=== PATIENT | female | born 1955 | race Caucasian/White ===

== ENCOUNTER → 2016-06-03 | Outpatient (CLI) | payer BC, OTHER ==
--- NOTE | 2016-06-03 15:22 | REPMRS ---
Patient History The patient states she had a clinical breast exam in 05/2016. Patient is postmenopausal. Family history of colorectal cancer in maternal aunt at age 50 or over. Taking estrogen for 13 years 10 months beginning at age 46. Digital Woman Screen Mammo: June 03, 2016 - Exam #: [id number] Bilateral CC and MLO view(s) were taken. Technologist: Angelica Haddad, Technologist Prior study comparison: May 25, 2015, digital woman screen mammo performed at [facility]. May 19, 2014, digital woman screen mammo performed at [facility]. May 18, 2013, digital woman screen mammo performed at [facility]. FINDINGS: There are scattered fibroglandular densities. There has been no change in the appearance of the mammogram from the prior studies. There is a mild amount of scattered fibroglandular density which is fairly symmetric. There is no interval development of dominant mass, architectural distortion, or clustered microcalcification suggestive of malignancy. ASSESSMENT: BI-RADS/ACR category 1 mammogram. Negative. Recommendation Routine screening mammogram in 1 year (for women over age 40). This mammogram was interpreted with the aid of an FDA-approved computer-aided dectection system. Electronically Signed By: Eliseo Xavier MD 06/03/16 [id number]
== END ==
LOC: M WHC 13:10
PROVIDERS: ATTEND Nurse Practitioner Family
DX: Z12.31 Encounter for screening mammogram for malignant neoplasm of breast (principal); Z78.0 Asymptomatic menopausal state; Z80.0 Family history of malignant neoplasm of digestive organs; Z92.23 Personal history of estrogen therapy

== ENCOUNTER → 2017-06-09 | Outpatient (CLI) | payer BC | LOC: M WHC 10:25 | DX: Z12.31 Encounter for screening mammogram for malignant neoplasm of breast (principal) | CPT/HCPCS: 77067 ==

== ENCOUNTER → 2017-08-25 | Outpatient (CLI) | payer BC, OTHER ==
[2017-08-25 09:49] LABS: ALBUMIN 3.7 GM/DL (3.2-5.2); ALBUMIN/GLOBULIN RATIO 1.12 (1.00-1.93); ALKALINE PHOSPHATASE 69 U/L (45-117); ALT/SGPT 21 U/L (12-78); ANION GAP 4 MEQ/L (8-16); AST/SGOT 15 U/L (7-37); BILIRUBIN,TOTAL 0.7 MG/DL (0.2-1.0); BLOOD UREA NITROGEN 14 MG/DL (7-18); CALCIUM LEVEL 8.5 MG/DL (8.8-10.2); CARBON DIOXIDE LEVEL 30 MEQ/L (21-32); CHLORIDE LEVEL 108 MEQ/L (98-107); CHOLESTEROL LEVEL 199 MG/DL (<200); CHOLESTEROL RISK RATIO 4.522 (<5); GLOMERULAR FILTRATION RATE > 60.0 (>45); GLUCOSE, FASTING 115 MG/DL (70-100); HDL CHOLESTEROL 44 MG/DL (>40); LDL CHOLESTEROL 112.4 MG/DL (<100); NON-HDL-C 155 MG/DL; POTASSIUM SERUM 4.6 MEQ/L (3.5-5.1); SODIUM LEVEL 142 MEQ/L (136-145); TRIGLYCERIDES LEVEL 213 MG/DL (<150)
[2017-08-25 11:44] LABS: ESTIMATED AVERAGE GLUCOSE 157 MG/DL (60-110); HEMOGLOBIN A1c 7.1 %
== END ==
LOC: M LAB 09:07
DX: E78.5 Hyperlipidemia, unspecified (principal); E03.9 Hypothyroidism, unspecified; E11.9 Type 2 diabetes mellitus without complications
CPT/HCPCS: 80053

== ENCOUNTER → 2017-12-01 | Outpatient (CLI) | payer BC, OTHER ==
[2017-12-01 14:54] LABS: ALBUMIN 3.9 GM/DL (3.2-5.2); ALKALINE PHOSPHATASE 65 U/L (45-117); ALT/SGPT 23 U/L (12-78); ANION GAP 8 MEQ/L (8-16); AST/SGOT 13 U/L (7-37); BILIRUBIN,TOTAL 0.7 MG/DL (0.2-1.0); BLOOD UREA NITROGEN 16 MG/DL (7-18); CALCIUM LEVEL 8.8 MG/DL (8.8-10.2); CARBON DIOXIDE LEVEL 27 MEQ/L (21-32); CHLORIDE LEVEL 106 MEQ/L (98-107); CREATININE FOR GFR 0.64 MG/DL (0.55-1.30); GLOMERULAR FILTRATION RATE > 60.0 (>45); LDL CHOLESTEROL 75 MG/DL (<100); POTASSIUM SERUM 4.8 MEQ/L (3.5-5.1); SODIUM LEVEL 141 MEQ/L (136-145); TRIGLYCERIDES LEVEL 309 MG/DL (<150)
[2017-12-02 01:21] LABS: ESTIMATED AVERAGE GLUCOSE 123 MG/DL (60-110); HEMOGLOBIN A1c 5.9 %
[2017-12-02 04:20] LABS: ALBUMIN/GLOBULIN RATIO 1.26 (1.00-1.93); CHOLESTEROL LEVEL 181 MG/DL (<200); CHOLESTEROL RISK RATIO 4.113 (<5); HDL CHOLESTEROL 44 MG/DL (>40); NON-HDL-C 137 MG/DL
[2017-12-02 04:29] LABS: GLUCOSE, FASTING 114 MG/DL (70-100)
== END ==
LOC: M LAB 09:12
DX: E78.5 Hyperlipidemia, unspecified (principal); E03.9 Hypothyroidism, unspecified; E11.9 Type 2 diabetes mellitus without complications
CPT/HCPCS: 84443

== ENCOUNTER → 2018-03-03 | Outpatient (CLI) | payer BC, OTHER ==
[2018-03-03 10:50] LABS: ALBUMIN 3.8 GM/DL (3.2-5.2); ALBUMIN/GLOBULIN RATIO 1.27 (1.00-1.93); ALKALINE PHOSPHATASE 76 U/L (45-117); ALT/SGPT 21 U/L (12-78); ANION GAP 6 MEQ/L (8-16); AST/SGOT 14 U/L (7-37); BILIRUBIN,TOTAL 0.8 MG/DL (0.2-1.0); BLOOD UREA NITROGEN 18 MG/DL (7-18); CALCIUM LEVEL 8.7 MG/DL (8.8-10.2); CARBON DIOXIDE LEVEL 31 MEQ/L (21-32); CHLORIDE LEVEL 103 MEQ/L (98-107); CHOLESTEROL LEVEL 205 MG/DL (<200); CHOLESTEROL RISK RATIO 4.659 (<5); CREATININE FOR GFR 0.64 MG/DL (0.55-1.30); GLOMERULAR FILTRATION RATE > 60.0 (>45); GLUCOSE, FASTING 141 MG/DL (70-100); HDL CHOLESTEROL 44 MG/DL (>40); LDL CHOLESTEROL 111 MG/DL (<100); NON-HDL-C 161 MG/DL; POTASSIUM SERUM 4.4 MEQ/L (3.5-5.1); SODIUM LEVEL 140 MEQ/L (136-145); TOTAL PROTEIN 6.8 GM/DL (6.4-8.2); TRIGLYCERIDES LEVEL 249 MG/DL (<150)
[2018-03-03 12:38] LABS: ESTIMATED AVERAGE GLUCOSE 160 MG/DL (60-110); HEMOGLOBIN A1c 7.2 %
== END ==
LOC: M LAB 09:35
DX: E11.9 Type 2 diabetes mellitus without complications (principal); E03.9 Hypothyroidism, unspecified; E78.5 Hyperlipidemia, unspecified
CPT/HCPCS: 84443

== ENCOUNTER → 2018-07-24 | Outpatient (CLI) | payer BC, OTHER ==
[~2018-07-24] MED LIST: ASPI81CH49 PO; BLAC540C2 PO; CALTTAB5 PO; CINN500C9 PO; CLAR10CA3 PO; COCOOIL6 PO; COLA100C5 PO; ESTR0.1C5 VA; EXCETAB80 PO; FIBETAB PO; GLUC1CAP10 PO; JANU100T PO; LEVO88TA3 PO; METF10004; OCUVTAB PO; OMEG100011 PO; PAPATAB3 PO; PROBCAP4 PO; RANI150T PO; REST0.05 OU; VITA400C7 PO; VITA500T PO; [UNRECOGNIZED DRUG - OTHER] PO; primrose oil PO; vitamin B2 PO
[2018-07-24 11:09] LABS: BLOOD UREA NITROGEN 23 MG/DL (7-18); CREATININE FOR GFR 0.63 MG/DL (0.55-1.30); GLOMERULAR FILTRATION RATE > 60.0 (>45)
== END ==
LOC: M LAB 09:20
PROVIDERS: ATTEND Psychiatry & Neurology Neurology
DX: I10 Essential (primary) hypertension (principal)

== ENCOUNTER → 2018-07-29 | Outpatient (REF) | payer OTHER ==
[2018-07-29 13:48] LABS: ALBUMIN 3.7 GM/DL (3.2-5.2); ALT/SGPT 24 U/L (12-78); BILIRUBIN,TOTAL 0.6 MG/DL (0.2-1.0); BLOOD UREA NITROGEN 17 MG/DL (7-18); CALCIUM LEVEL 8.7 MG/DL (8.8-10.2); CARBON DIOXIDE LEVEL 29 MEQ/L (21-32); CHLORIDE LEVEL 108 MEQ/L (98-107); CHOLESTEROL LEVEL 175 MG/DL (<200); CHOLESTEROL RISK RATIO 3.645 (<5); CREATININE FOR GFR 0.64 MG/DL (0.55-1.30); FREE T4 1.19 NG/DL (0.76-1.46); GLOMERULAR FILTRATION RATE > 60.0 (>45); GLUCOSE, FASTING 118 MG/DL (70-100); HDL CHOLESTEROL 48 MG/DL (>40); LDL CHOLESTEROL 91 MG/DL (<100); NON-HDL-C 127 MG/DL; POTASSIUM SERUM 4.6 MEQ/L (3.5-5.1); SODIUM LEVEL 141 MEQ/L (136-145); TOTAL PROTEIN 6.5 GM/DL (6.4-8.2); TRIGLYCERIDES LEVEL 180 MG/DL (<150)
== END ==
LOC: M SFHCADAM 08:25
PROVIDERS: ATTEND Physician Assistant Medical
DX: E03.9 Hypothyroidism, unspecified (principal); E11.39 Type 2 diabetes mellitus with other diabetic ophthalmic complication

== ENCOUNTER → 2018-08-04 | Outpatient (CLI) | payer BC ==
--- NOTE | 2018-08-04 10:49 | REPMRS ---
Patient History The patient states she had a clinical breast exam in 07/2018. Patient is postmenopausal. Family history of colorectal cancer at age 50 or over in maternal aunt, pancreatic cancer in brother. Took estrogen for 14 years 10 months beginning at age 46. Digital Woman Screen Mammo: August 04, 2018 - Exam #: [id number] Bilateral CC and MLO view(s) were taken. Technologist: Elise Dupree, Technologist Prior study comparison: June 09, 2017, digital woman screen mammo performed at [facility]. June 03, 2016, digital woman screen mammo performed at [facility]. May 25, 2015, digital woman screen mammo performed at [facility]. FINDINGS: There are scattered fibroglandular densities. There has been no change in the appearance of the mammogram from the prior studies. There is a mild amount of scattered fibroglandular density which is fairly symmetric. There is no interval development of dominant mass, architectural distortion, or clustered microcalcification suggestive of malignancy. 3-D tomosynthesis shows no additional findings. Assessment: BI-RADS/ACR category 1 mammogram. Negative Mammogram. Recommendation Routine screening mammogram of both breasts in 1 year (for women over age 40). This patient's Lifetime Breast Cancer RIsk is estimated at 5.4 %. This mammogram was interpreted with the aid of an FDA-approved computer-aided dectection system. Electronically Signed By: Eliseo Xavier MD 08/04/18 [id number]
== END ==
LOC: M WHC 08:50
PROVIDERS: ATTEND Nurse Practitioner Family
DX: Z12.31 Encounter for screening mammogram for malignant neoplasm of breast (principal); Z78.0 Asymptomatic menopausal state; Z80.0 Family history of malignant neoplasm of digestive organs; Z92.23 Personal history of estrogen therapy

== ENCOUNTER → 2018-11-27 | Outpatient (REF) | payer OTHER ==
[2018-11-27 13:08] LABS: FREE T4 1.28 NG/DL (0.76-1.46); THYROID STIMULATING HORMONE 1.84 uIU/ML (0.358-3.740)
== END ==
LOC: M SFHCADAM 09:37
PROVIDERS: ATTEND Physician Assistant Medical
DX: E03.9 Hypothyroidism, unspecified (principal)

== ENCOUNTER → 2019-03-19 | Outpatient (CLI) | payer BC, OTHER ==
--- NOTE | 2019-03-19 15:14 | REP ---
MRI LEFT KNEE: TECHNIQUE: Axial proton density fat saturation, sagittal proton density T2 STIR, water excitation, coronal proton density, proton density fat saturation. There is a complex tear of the posterior horn of the medial meniscus extending into the anterior horn of the medial meniscus. There is fraying centrally at the apex of the body of the lateral meniscus. The cruciate and collateral ligaments are intact. Extensor mechanism is intact. Medial and lateral patellar retinacula are intact. Moderate chondromalacia is seen of the medial patellar facet. There is moderately severe diffuse chondromalacia of the medial femoral condyle and tibial plateau with mild subchondral marrow edema. Elsewhere, there is relatively mild diffuse chondromalacia. There is moderate joint effusion. Elongated cystic structure is seen in the medial popliteal fossa insinuating between the medial head of the gastrocnemius tendon and muscle and adjacent semimembranosus and semitendinosus. Fluid extends for a craniocaudal length of about 9.5 cm and has a maximum thickness of about 2.5 cm. Fluid extends around the distal semitendinosus tendon and surrounds it having an appearance of tenosynovitis, with possible associated tenosynovitis also involving the adjacent semimembranosus and medial head of the gastrocnemius. There are two small calcific or cartilaginous bodies 5 mm in diameter at the level of the joint along the medial margin of the semimembranosus tendon. IMPRESSION: Complex tear posterior horn medial meniscus. This extends into the anterior horn. There is fraying at the apex of the body of the lateral meniscus. The cruciate and collateral ligaments are intact. 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 Moderately severe diffuse chondromalacia of the medial femoral condyle and tibial plateau with mild subchondral marrow edema. Moderate joint effusion. Elongated cystic structure insinuating between the semitendinosus, semimembranosus, and medial head of gastrocnemius as discussed in detail above, with probably an element of tenosynovitis primarily involving the semitendinosus tendon. Two subcentimeter calcific or cartilaginous bodies are seen along the medial margin of the semimembranosus tendon at the level of the knee joint. Electronically Signed by Hugo Swan MD 03/19/2019 05:17 P
== END ==
LOC: M RAD 11:01
PROVIDERS: ATTEND Orthopaedic Surgery Sports Medicine
DX: M17.12 Unilateral primary osteoarthritis, left knee (principal)

== ENCOUNTER → 2019-07-27 | Outpatient (REF) | payer OTHER ==
[~2019-07-27] MED LIST changes: +VITA-243 PO; -VITA500T PO
[2019-07-27 13:25] LABS: ALBUMIN 3.6 GM/DL (3.2-5.2); ALT/SGPT 21 U/L (12-78); BILIRUBIN,TOTAL 0.8 MG/DL (0.2-1.0); BLOOD UREA NITROGEN 22 MG/DL (7-18); CALCIUM LEVEL 8.8 MG/DL (8.8-10.2); CARBON DIOXIDE LEVEL 29 MEQ/L (21-32); CHLORIDE LEVEL 106 MEQ/L (98-107); CHOLESTEROL LEVEL 176 MG/DL (<200); CHOLESTEROL RISK RATIO 4.093 (<5); CREATININE FOR GFR 0.56 MG/DL (0.55-1.30); GLOMERULAR FILTRATION RATE > 60.0 (>45); GLUCOSE, FASTING 111 MG/DL (70-100); HDL CHOLESTEROL 43 MG/DL (>40); LDL CHOLESTEROL 103 MG/DL (<100); NON-HDL-C 133 MG/DL; POTASSIUM SERUM 4.5 MEQ/L (3.5-5.1); SODIUM LEVEL 140 MEQ/L (136-145); TOTAL PROTEIN 6.6 GM/DL (6.4-8.2); TRIGLYCERIDES LEVEL 152 MG/DL (<150)
[2019-07-27 13:26] LABS: MALB URINE SIEMENS 25.6 MG/L; MAU/CREAT RATIO 23.7 MCG/MG (0.0-30.0)
[2019-07-27 13:33] LABS: HEMOGLOBIN A1c 6.5 %
== END ==
LOC: M SFHCADAM 08:17
PROVIDERS: ATTEND Physician Assistant Medical
DX: E11.39 Type 2 diabetes mellitus with other diabetic ophthalmic complication (principal); G47.33 Obstructive sleep apnea (adult) (pediatric)

== ENCOUNTER → 2019-08-09 | Outpatient (CLI) | payer BC ==
--- NOTE | 2019-08-09 12:13 | REPMRS ---
Patient History The patient states she had a clinical breast exam in July 2019. Family history of colorectal cancer at age 50 or over in maternal aunt, pancreatic cancer in brother. Took estrogen for 14 years 10 months beginning at age 46. Digital Woman Screen Mammo: August 09, 2019 - Exam #: [id number] Bilateral CC and MLO view(s) were taken. Technologist: Evette Barry, Technologist Prior study comparison: August 04, 2018, bilateral digital woman screen mammo performed at [facility]. June 09, 2017, digital woman screen mammo performed at [facility]. June 03, 2016, digital woman screen mammo performed at [facility]. FINDINGS: There are scattered fibroglandular densities. The Volpara volumetric breast density category is:B. There has been no change in the appearance of the mammogram from the prior studies. There is a mild amount of scattered fibroglandular density which is fairly symmetric. There is no interval development of dominant mass, architectural distortion, or grouped microcalcification suggestive of malignancy. 3-D tomosynthesis shows no additional findings. Assessment: BI-RADS/ACR category 1 mammogram. Negative Mammogram. Recommendation Routine screening mammogram of both breasts in 1 year (for women over age 40). This patient's Lifetime Breast Cancer Risk is estimated at 5.2 %. This mammogram was interpreted with the aid of an FDA-approved computer-aided dectection system. Electronically Signed By: Eliseo Xavier MD 08/09/19 [id number]
== END ==
LOC: M WHC 10:17
PROVIDERS: ATTEND Nurse Practitioner Family
DX: Z12.31 Encounter for screening mammogram for malignant neoplasm of breast (principal)

== ENCOUNTER → 2019-11-17 | Outpatient (REF) | payer OTHER | LOC: M LAB REF 13:14 | PROVIDERS: ATTEND Physician Assistant | DX: R30.0 Dysuria (principal) ==

== ENCOUNTER → 2019-11-25 | Outpatient (REF) | payer OTHER ==
[2019-11-25 18:58] LABS: BLOOD UREA NITROGEN 29 MG/DL (7-18); CALCIUM LEVEL 9.8 MG/DL (8.8-10.2); CARBON DIOXIDE LEVEL 29 MEQ/L (21-32); CHLORIDE LEVEL 104 MEQ/L (98-107); GLOMERULAR FILTRATION RATE > 60.0 (>45); GLUCOSE, FASTING 112 MG/DL (70-100); POTASSIUM SERUM 4.9 MEQ/L (3.5-5.1); SODIUM LEVEL 140 MEQ/L (136-145)
== END ==
LOC: M LABDRWAD 13:50
PROVIDERS: ATTEND Physician Assistant Medical
DX: N81.10 Cystocele, unspecified (principal)

== ENCOUNTER → 2020-01-10 | Outpatient (REF) | payer OTHER ==
[2020-01-10 14:31] LABS: BASO % 0.5 % (0.0-1.0); EOS # 0.1 10^3/uL (0.0-0.5); EOS % 1.2 % (0.0-3.0); HEMATOCRIT 44.8 % (36.0-47.0); HEMOGLOBIN 14.4 g/dl (12.0-15.5); LYMPH # 2.2 10^3/uL (1.5-5.0); LYMPH % 33.3 % (24.0-44.0); MEAN CORPUSCULAR HEMOGLOBIN 31.9 pg (27.0-33.0); MEAN CORPUSCULAR HGB CONC 32.1 g/dl (32.0-36.5); MEAN CORPUSCULAR VOLUME 99.3 fl (80.0-96.0); MONO # 0.6 10^3/uL (0.0-0.8); MONO % 8.4 % (0.0-5.0); NEUTROPHILS # 3.7 10^3/uL (1.5-8.5); NEUTROPHILS % 56.3 % (36.0-66.0); PLATELET COUNT, AUTOMATED 211 10^3/uL (150-450); RED BLOOD COUNT 4.51 10^6/uL (4.00-5.40); WHITE BLOOD COUNT 6.6 10^3/uL (4.0-10.0)
[2020-01-10 15:05] LABS: ALBUMIN 3.7 GM/DL (3.2-5.2); ALT/SGPT 20 U/L (12-78); BILIRUBIN,TOTAL 0.8 MG/DL (0.2-1.0); BLOOD UREA NITROGEN 20 MG/DL (7-18); CARBON DIOXIDE LEVEL 29 MEQ/L (21-32); CHLORIDE LEVEL 106 MEQ/L (98-107); CHOLESTEROL LEVEL 200 MG/DL (<200); CHOLESTEROL RISK RATIO 3.571 (<5); CREATININE FOR GFR 0.64 MG/DL (0.55-1.30); GLOMERULAR FILTRATION RATE > 60.0 (>45); GLUCOSE, FASTING 111 MG/DL (70-100); HDL CHOLESTEROL 56 MG/DL (>40); LDL CHOLESTEROL 115 MG/DL (<100); NON-HDL-C 144 MG/DL; POTASSIUM SERUM 4.5 MEQ/L (3.5-5.1); SODIUM LEVEL 140 MEQ/L (136-145); TRIGLYCERIDES LEVEL 146 MG/DL (<150)
== END ==
LOC: M SFHCADAM 10:00
PROVIDERS: ATTEND Physician Assistant Medical
DX: E11.39 Type 2 diabetes mellitus with other diabetic ophthalmic complication (principal); E03.9 Hypothyroidism, unspecified; G47.33 Obstructive sleep apnea (adult) (pediatric)

== ENCOUNTER → 2020-04-14 | Outpatient (REF) | payer OTHER | LOC: M SFHCADAM 11:45 | PROVIDERS: ATTEND Physician Assistant Medical | DX: J34.89 Other specified disorders of nose and nasal sinuses (principal) ==

== ENCOUNTER → 2020-07-21 | Outpatient (REF) | payer MEDICARE, OTHER ==
[2020-07-21 13:30] LABS: BASO # 0.1 10^3/uL (0.0-0.2); BASO % 0.9 % (0.0-1.0); EOS # 0.1 10^3/uL (0.0-0.5); EOS % 2.5 % (0.0-3.0); HEMATOCRIT 40.8 % (36.0-47.0); LYMPH # 2.5 10^3/uL (1.5-5.0); LYMPH % 43.7 % (24.0-44.0); MEAN CORPUSCULAR HGB CONC 31.9 g/dl (32.0-36.5); MEAN CORPUSCULAR VOLUME 97.4 fl (80.0-96.0); MONO # 0.5 10^3/uL (0.0-0.8); MONO % 9.1 % (2.0-8.0); NEUTROPHILS # 2.5 10^3/uL (1.5-8.5); NEUTROPHILS % 43.4 % (36.0-66.0); PLATELET COUNT, AUTOMATED 187 10^3/uL (150-450); RED BLOOD COUNT 4.19 10^6/uL (4.00-5.40); WHITE BLOOD COUNT 5.6 10^3/uL (4.0-10.0)
[2020-07-21 14:02] LABS: HEMOGLOBIN A1c 5.7 %
[2020-07-21 14:10] LABS: ALBUMIN 3.9 GM/DL (3.2-5.2); ALT/SGPT 25 U/L (12-78); BILIRUBIN,TOTAL 0.8 MG/DL (0.2-1.0); BLOOD UREA NITROGEN 23 MG/DL (7-18); CALCIUM LEVEL 9.2 MG/DL (8.8-10.2); CARBON DIOXIDE LEVEL 30 MEQ/L (21-32); CHLORIDE LEVEL 106 MEQ/L (98-107); CHOLESTEROL LEVEL 209 MG/DL (<200); CREATININE FOR GFR 0.65 MG/DL (0.55-1.30); GLOMERULAR FILTRATION RATE > 60.0 (>45); GLUCOSE, FASTING 110 MG/DL (70-100); HDL CHOLESTEROL 54 MG/DL (>40); LDL CHOLESTEROL 127 MG/DL (<100); NON-HDL-C 155 MG/DL; POTASSIUM SERUM 4.7 MEQ/L (3.5-5.1); SODIUM LEVEL 140 MEQ/L (136-145); TRIGLYCERIDES LEVEL 141 MG/DL (<150)
[2020-07-21 14:13] LABS: MALB URINE SIEMENS 10.3 MG/L
== END ==
LOC: M SFHCADAM 10:18
PROVIDERS: ATTEND Physician Assistant Medical
DX: E03.9 Hypothyroidism, unspecified (principal); E66.9 Obesity, unspecified; E11.39 Type 2 diabetes mellitus with other diabetic ophthalmic complication; G47.33 Obstructive sleep apnea (adult) (pediatric); K59.09 Other constipation; Z99.89 Dependence on other enabling machines and devices

== ENCOUNTER → 2020-08-09 | Outpatient (CLI) | payer MEDICARE, BC ==
--- NOTE | 2020-08-09 12:29 | REPMRS ---
Patient History The patient states she had a clinical breast exam in July 2020. Patient is postmenopausal. Family history of colorectal cancer at age 50 or over in maternal aunt, pancreatic cancer in brother. Taking estrogen for 14 years 10 months beginning at age 46. Tomosynthesis is performed. Volpara breast density is b. Violet lifetime risk of breast cancer 4.9%. No breast complaints today Patient signed the MRS sheet 1st covid vaccine 06/23/20-right arm-Moderna 2nd covid vaccine 07/24/20-left arm Priors on PACS Patient Identification Verified Digital Woman Screen Mammo: August 09, 2020 - Exam #: [id number] Bilateral CC and MLO view(s) were taken. Technologist: Yosef Maldonadoologist Prior study comparison: August 09, 2019, bilateral digital woman screen mammo performed at [facility]. August 04, 2018, bilateral digital woman screen mammo performed at [facility]. FINDINGS: There are scattered fibroglandular densities. There has been no change in the appearance of the mammogram from the prior studies. There is a mild amount of residual fibroglandular tissue which is fairly symmetric. There is no interval development of dominant mass, architectural distortion, or clustered microcalcification suggestive of malignancy. Assessment: BI-RADS/ACR category 1 mammogram. Negative Mammogram. Recommendation Routine screening mammogram in 1 year (for women over age 40). This mammogram was interpreted with the aid of an FDA-approved computer-aided dectection system. Electronically Signed By: Hugo Swan MD 08/09/20 [id number]
--- NOTE | 2020-08-09 12:57 | DEXAMM ---
INDICATION: N95.1 MENOPAUSAL. COMPARISON: 05/25/2015 as well as other prior exams. TECHNIQUE: Bone density was measured using dual-energy x-ray absorptiometry (DEXA). FINDINGS: AP SPINE L1-L4 BMD 1.085 g/cm2 Young Adult T-Score -0.9 Age Matched Z-Score 0.7. LT FEMUR, TOTAL BMD 0.999 g/cm2 Young Adult T-Score -0.1 Age Matched Z-Score 1.1. LT NECK BMD 0.893 g/cm2 Young Adult T-Score -1.0 Age Matched Z-Score 0.4. RT FEMUR, TOTAL BMD 1.076 g/cm2 Young Adult T-Score 0.5 Age Matched Z-Score 1.7. RT NECK BMD 0.871 g/cm2 Young Adult T-Score -1.2 Age Matched Z-Score 0.3. IMPRESSION: There is normal bone density of the spine. There is low bone density of the left hip. There is low bone density of the right hip. The density of the spine has decreased 7.4% since the initial exam on 10/26/2001. The density of the spine decreased 11.3% since most recent exam on 05/25/2015. The density of the left hip has decreased 6.3% since initial exam on 10/26/2001. The density of the left hip has decreased 4.5% since most recent exam on 05/25/2015. The density of the right hip has decreased 7.1% since the initial exam on 10/26/2001. The density of the right hip has decreased 6.8% since the most recent exam on 05/25/2015. FOLLOW-UP: Recommendation for the next bone density exam: 2 years. <Electronically signed by Hugo Swan > 08/09/20 [id number]
== END ==
LOC: M WHC 10:09
PROVIDERS: ATTEND Advanced Practice Midwife
DX: Z01.419 Encounter for gynecological examination (general) (routine) without abnormal findings (principal); Z12.31 Encounter for screening mammogram for malignant neoplasm of breast; Z78.0 Asymptomatic menopausal state; Z92.23 Personal history of estrogen therapy
CPT/HCPCS: 77063; 77067; 77080; G0101

== ENCOUNTER → 2021-01-22 | Outpatient (REF) | payer MEDICARE, OTHER ==
[2021-01-22 13:30] LABS: HEMOGLOBIN A1c 6.1 %
[2021-01-22 13:55] LABS: ALBUMIN 3.5 GM/DL (3.2-5.2); ALT/SGPT 19 U/L (12-78); BILIRUBIN,TOTAL 0.6 MG/DL (0.2-1.0); BLOOD UREA NITROGEN 21 MG/DL (7-18); CALCIUM LEVEL 8.9 MG/DL (8.8-10.2); CARBON DIOXIDE LEVEL 30 MEQ/L (21-32); CHLORIDE LEVEL 108 MEQ/L (98-107); CHOLESTEROL LEVEL 195 MG/DL (<200); CHOLESTEROL RISK RATIO 3.823 (<5); CREATININE FOR GFR 0.66 MG/DL (0.55-1.30); GLOMERULAR FILTRATION RATE > 60.0 (>45); GLUCOSE, FASTING 105 MG/DL (70-100); HDL CHOLESTEROL 51 MG/DL (>40); LDL CHOLESTEROL 108 MG/DL (<100); NON-HDL-C 144 MG/DL; POTASSIUM SERUM 4.5 MEQ/L (3.5-5.1); SODIUM LEVEL 141 MEQ/L (136-145); TOTAL PROTEIN 6.4 GM/DL (6.4-8.2); TRIGLYCERIDES LEVEL 181 MG/DL (<150)
== END ==
LOC: M SFHCADAM 08:29
PROVIDERS: ATTEND Physician Assistant Medical
DX: E03.9 Hypothyroidism, unspecified (principal); E66.9 Obesity, unspecified; E11.39 Type 2 diabetes mellitus with other diabetic ophthalmic complication

== ENCOUNTER → 2021-07-30 | Outpatient (REF) | payer MEDICARE, OTHER ==
[2021-07-30 14:26] LABS: BASO % 0.4 % (0.0-1.0); EOS # 0.1 10^3/uL (0.0-0.5); EOS % 1.8 % (0.0-3.0); HEMATOCRIT 42.1 % (36.0-47.0); HEMOGLOBIN 13.6 g/dl (12.0-15.5); LYMPH # 2.6 10^3/uL (1.5-5.0); LYMPH % 38.8 % (24.0-44.0); MEAN CORPUSCULAR HEMOGLOBIN 31.7 pg (27.0-33.0); MEAN CORPUSCULAR HGB CONC 32.3 g/dl (32.0-36.5); MEAN CORPUSCULAR VOLUME 98.1 fl (80.0-96.0); MONO # 0.6 10^3/uL (0.0-0.8); MONO % 8.7 % (2.0-8.0); NEUTROPHILS # 3.4 10^3/uL (1.5-8.5); PLATELET COUNT, AUTOMATED 216 10^3/uL (150-450); RED BLOOD COUNT 4.29 10^6/uL (4.00-5.40); WHITE BLOOD COUNT 6.8 10^3/uL (4.0-10.0)
[2021-07-30 15:08] LABS: CREATININE, URINE 69.2 MG/DL; MALB URINE SIEMENS 10.2 MG/L; MAU/CREAT RATIO 14.7 MCG/MG (0.0-30.0)
[2021-07-30 15:16] LABS: ALBUMIN 3.8 GM/DL (3.2-5.2); ALT/SGPT 26 U/L (12-78); BILIRUBIN,TOTAL 1.1 MG/DL (0.2-1.0); BLOOD UREA NITROGEN 20 MG/DL (7-18); CALCIUM LEVEL 9.1 MG/DL (8.8-10.2); CARBON DIOXIDE LEVEL 31 MEQ/L (21-32); CHLORIDE LEVEL 104 MEQ/L (98-107); CHOLESTEROL LEVEL 191 MG/DL (<200); CREATININE FOR GFR 0.72 MG/DL (0.55-1.30); GLOMERULAR FILTRATION RATE > 60.0 (>45); GLUCOSE, FASTING 118 MG/DL (70-100); HDL CHOLESTEROL 56 MG/DL (>40); LDL CHOLESTEROL 100 MG/DL (<100); NON-HDL-C 135 MG/DL; POTASSIUM SERUM 4.7 MEQ/L (3.5-5.1); SODIUM LEVEL 138 MEQ/L (136-145); TOTAL PROTEIN 6.7 GM/DL (6.4-8.2); TRIGLYCERIDES LEVEL 173 MG/DL (<150)
[2021-07-30 16:04] LABS: HEMOGLOBIN A1c 6.2 %
== END ==
LOC: M SFHCADAM 07:55
PROVIDERS: ATTEND Physician Assistant Medical
DX: E11.39 Type 2 diabetes mellitus with other diabetic ophthalmic complication (principal); E03.9 Hypothyroidism, unspecified

== ENCOUNTER → 2021-10-03 | Outpatient (CLI) | payer MEDICARE, OTHER | LOC: M ADAMS 11:19 | PROVIDERS: ATTEND Physician Assistant | DX: Z01.818 Encounter for other preprocedural examination (principal); Z79.899 Other long term (current) drug therapy ==

== ENCOUNTER → 2021-10-03 | Outpatient (REF) | payer MEDICARE, OTHER ==
[2021-10-03 13:27] LABS: HEMATOCRIT 40.3 % (36.0-47.0); HEMOGLOBIN 13.1 g/dl (12.0-15.5); MEAN CORPUSCULAR HEMOGLOBIN 31.3 pg (27.0-33.0); MEAN CORPUSCULAR HGB CONC 32.5 g/dl (32.0-36.5); MEAN CORPUSCULAR VOLUME 96.2 fl (80.0-96.0); PLATELET COUNT, AUTOMATED 240 10^3/uL (150-450); RED BLOOD COUNT 4.19 10^6/uL (4.00-5.40); WHITE BLOOD COUNT 6.8 10^3/uL (4.0-10.0)
[2021-10-03 14:15] LABS: BLOOD UREA NITROGEN 16 MG/DL (7-18); CALCIUM LEVEL 9.4 MG/DL (8.8-10.2); CARBON DIOXIDE LEVEL 32 MEQ/L (21-32); CHLORIDE LEVEL 104 MEQ/L (98-107); CREATININE FOR GFR 0.58 MG/DL (0.55-1.30); GLOMERULAR FILTRATION RATE > 60.0 (>45); GLUCOSE, FASTING 103 MG/DL (70-100); POTASSIUM SERUM 4.4 MEQ/L (3.5-5.1); SODIUM LEVEL 138 MEQ/L (136-145)
[2021-10-03 22:00] LABS: HEMOGLOBIN A1c 6.3 %
== END ==
LOC: M SFHCADAM 11:06
PROVIDERS: ATTEND Physician Assistant
DX: Z01.818 Encounter for other preprocedural examination (principal); Z79.899 Other long term (current) drug therapy

== ENCOUNTER → 2021-11-21 | Outpatient (CLI) | payer MEDICARE, BC, OTHER | LOC: M WHC 14:12 | PROVIDERS: ATTEND Specialist | DX: Z12.31 Encounter for screening mammogram for malignant neoplasm of breast (principal) ==

== ENCOUNTER → 2022-02-05 | Outpatient (REF) | payer MEDICARE, OTHER ==
[2022-02-05 14:52] LABS: BASO % 0.4 % (0.0-1.0); EOS # 0.1 10^3/uL (0.0-0.5); EOS % 1.5 % (0.0-3.0); HEMATOCRIT 43.4 % (36.0-47.0); HEMOGLOBIN 13.4 g/dl (12.0-15.5); LYMPH # 2.6 10^3/uL (1.5-5.0); LYMPH % 35.7 % (24.0-44.0); MEAN CORPUSCULAR HEMOGLOBIN 30.7 pg (27.0-33.0); MEAN CORPUSCULAR HGB CONC 30.9 g/dl (32.0-36.5); MEAN CORPUSCULAR VOLUME 99.3 fl (80.0-96.0); MONO # 0.6 10^3/uL (0.0-0.8); MONO % 7.8 % (2.0-8.0); NEUTROPHILS # 3.9 10^3/uL (1.5-8.5); NEUTROPHILS % 54.3 % (36.0-66.0); PLATELET COUNT, AUTOMATED 196 10^3/uL (150-450); RED BLOOD COUNT 4.37 10^6/uL (4.00-5.40); WHITE BLOOD COUNT 7.2 10^3/uL (4.0-10.0)
[2022-02-05 18:36] LABS: ALBUMIN 3.9 G/DL (3.2-5.2); ALT/SGPT 14 U/L (7.0-40); BLOOD UREA NITROGEN 20 MG/DL (9-23); CALCIUM LEVEL 9.2 MG/DL (8.3-10.6); CARBON DIOXIDE LEVEL 30 MMOL/L (20-31); CHLORIDE LEVEL 102 MMOL/L (98-107); CHOLESTEROL LEVEL 185 MG/DL (<200); CHOLESTEROL RISK RATIO 3.51 (<5); GLOMERULAR FILTRATION RATE > 60.0 (>45); GLUCOSE, FASTING 110 MG/DL (74-106); HDL CHOLESTEROL 52.7 MG/DL (>40); LDL CHOLESTEROL 94.5 MG/DL (<100); NON-HDL-C 132 MG/DL; POTASSIUM SERUM 4.6 MMOL/L (3.5-5.1); SODIUM LEVEL 141 MMOL/L (136-145); THYROID STIMULATING HORMONE 0.533 uIU/ML (0.55-4.78); TOTAL PROTEIN 6.6 G/DL; TRIGLYCERIDES LEVEL 189 MG/DL (<150)
[2022-02-05 18:40] LABS: HEMOGLOBIN A1c 6.2 % (4.0-6.0)
== END ==
LOC: M SFHCADAM 07:36
PROVIDERS: ATTEND Physician Assistant Medical
DX: E11.39 Type 2 diabetes mellitus with other diabetic ophthalmic complication (principal); E03.9 Hypothyroidism, unspecified; E66.9 Obesity, unspecified

== ENCOUNTER → 2022-03-26 | Outpatient (REF) | payer MEDICARE, OTHER ==
[2022-03-26 13:40] LABS: FREE T4 1.4 NG/DL (0.89-1.76); THYROID STIMULATING HORMONE 1.887 uIU/ML (0.55-4.78)
== END ==
LOC: M SFHCADAM 11:20
PROVIDERS: ATTEND Physician Assistant Medical
DX: E03.9 Hypothyroidism, unspecified (principal)

== ENCOUNTER → 2022-08-14 | Outpatient (REF) | payer MEDICARE, OTHER ==
[2022-08-14 15:09] LABS: ALBUMIN 3.6 G/DL (3.2-5.2); ALKALINE PHOSPHATASE 68 U/L (46-116); ALT/SGPT 20 U/L (7.0-40); AST/SGOT 18 U/L (<34); BLOOD UREA NITROGEN 19 MG/DL (9-23); CALCIUM LEVEL 8.7 MG/DL (8.3-10.6); CARBON DIOXIDE LEVEL 30 MMOL/L (20-31); CHLORIDE LEVEL 107 MMOL/L (98-107); CHOLESTEROL LEVEL 193 MG/DL (<200); CHOLESTEROL RISK RATIO 4.27 (<5); CREATININE FOR GFR 0.66 MG/DL (0.55-1.30); GLOMERULAR FILTRATION RATE > 60.0 (>45); GLUCOSE, FASTING 109 MG/DL (74-106); HDL CHOLESTEROL 45.1 MG/DL (>40); LDL CHOLESTEROL 91.3 MG/DL (<100); NON-HDL-C 147.9 MG/DL; POTASSIUM SERUM 4.7 MMOL/L (3.5-5.1); SODIUM LEVEL 142 MMOL/L (136-145); TOTAL PROTEIN 6.5 G/DL (5.7-8.2); TRIGLYCERIDES LEVEL 283 MG/DL (<150)
[2022-08-14 15:10] LABS: THYROID STIMULATING HORMONE 2.988 uIU/ML (0.55-4.78)
[2022-08-14 15:11] LABS: FREE T4 1.29 NG/DL (0.89-1.76)
[2022-08-14 15:52] LABS: HEMOGLOBIN A1c 6.3 % (4.0-6.0)
== END ==
LOC: M SFHCADAM 07:51
PROVIDERS: ATTEND Physician Assistant Medical
DX: E03.9 Hypothyroidism, unspecified (principal); E11.39 Type 2 diabetes mellitus with other diabetic ophthalmic complication

== ENCOUNTER → 2022-12-02 | Outpatient (CLI) | payer MEDICARE, BC, OTHER | LOC: M WHC 12:42 | PROVIDERS: ATTEND Physician Assistant Medical | DX: Z12.31 Encounter for screening mammogram for malignant neoplasm of breast (principal) ==

== ENCOUNTER → 2023-02-17 | Outpatient (REF) | payer MEDICARE, OTHER ==
[2023-02-17 13:38] LABS: ALBUMIN 3.7 G/DL (3.2-5.2); ALKALINE PHOSPHATASE 63 U/L (46-116); ALT/SGPT 15 U/L (7.0-40); AST/SGOT 13 U/L (<34); BILIRUBIN,TOTAL 0.8 MG/DL (0.3-1.2); BLOOD UREA NITROGEN 17 MG/DL (9-23); CALCIUM LEVEL 9.2 MG/DL (8.3-10.6); CARBON DIOXIDE LEVEL 31 MMOL/L (20-31); CHLORIDE LEVEL 105 MMOL/L (98-107); CREATININE FOR GFR 0.66 MG/DL (0.55-1.30); GLOMERULAR FILTRATION RATE > 60.0 (>45); GLUCOSE, FASTING 112 MG/DL (74-106); POTASSIUM SERUM 4.7 MMOL/L (3.5-5.1); SODIUM LEVEL 142 MMOL/L (136-145); TOTAL PROTEIN 6.5 G/DL (5.7-8.2)
[2023-02-17 13:41] LABS: THYROID STIMULATING HORMONE 6.074 uIU/ML (0.55-4.78); TOTAL 25(OH) VITAMIN D 57.7 NG/ML (20.0-100.0)
[2023-02-17 13:42] LABS: FREE T4 1.33 NG/DL (0.89-1.76)
[2023-02-17 13:43] LABS: BASO % 0.5 % (0.0-1.0); EOS # 0.2 10^3/uL (0.0-0.5); EOS % 2.5 % (0.0-3.0); HEMATOCRIT 41.9 % (36.0-47.0); HEMOGLOBIN 13.4 g/dl (12.0-15.5); LYMPH # 2.9 10^3/uL (1.5-5.0); LYMPH % 36.2 % (24.0-44.0); MEAN CORPUSCULAR HEMOGLOBIN 31.7 pg (27.0-33.0); MEAN CORPUSCULAR VOLUME 99.1 fl (80.0-96.0); MONO # 0.6 10^3/uL (0.0-0.8); MONO % 7.9 % (2.0-8.0); NEUTROPHILS # 4.1 10^3/uL (1.5-8.5); NEUTROPHILS % 52.5 % (36.0-66.0); PLATELET COUNT, AUTOMATED 211 10^3/uL (150-450); RED BLOOD COUNT 4.23 10^6/uL (4.00-5.40); WHITE BLOOD COUNT 7.9 10^3/uL (4.0-10.0)
[2023-02-17 13:48] LABS: HEMOGLOBIN A1c 6.3 % (4.0-6.0)
[2023-02-17 14:02] LABS: CREATININE, URINE 120.3 MG/DL; MAU/CREAT RATIO 4.1 MCG/MG (0.0-30.0)
== END ==
LOC: M SFHCADAM 08:05
PROVIDERS: ATTEND Physician Assistant Medical
DX: E11.39 Type 2 diabetes mellitus with other diabetic ophthalmic complication (principal); E03.9 Hypothyroidism, unspecified; Z79.899 Other long term (current) drug therapy

== ENCOUNTER → 2023-04-04 | Outpatient (REF) | payer MEDICARE, OTHER, BC ==
[2023-04-04 14:35] LABS: THYROID STIMULATING HORMONE 0.551 uIU/ML (0.55-4.78)
[2023-04-04 14:37] LABS: FREE T4 1.59 NG/DL (0.89-1.76)
== END ==
LOC: M LABDRWAD 12:41 → M SFHCADAM 12:41
PROVIDERS: ATTEND Physician Assistant Medical
DX: E03.9 Hypothyroidism, unspecified (principal)

== ENCOUNTER → 2023-07-23 | Outpatient (CLI) | payer MEDICARE, BC | LOC: M WHC 11:24 | PROVIDERS: ATTEND Physician Assistant Medical | DX: Z78.0 Asymptomatic menopausal state (principal) ==

== ENCOUNTER → 2023-08-20 | Outpatient (REF) | payer MEDICARE, BC ==
[2023-08-20 13:44] LABS: ALBUMIN 3.5 G/DL (3.2-5.2); ALKALINE PHOSPHATASE 64 U/L (46-116); ALT/SGPT 18 U/L (7.0-40); AST/SGOT 12 U/L (<34); BLOOD UREA NITROGEN 19 MG/DL (9-23); CALCIUM LEVEL 8.9 MG/DL (8.3-10.6); CARBON DIOXIDE LEVEL 30 MMOL/L (20-31); CHLORIDE LEVEL 106 MMOL/L (98-107); CHOLESTEROL LEVEL 185 MG/DL (<200); CHOLESTEROL RISK RATIO 3.55 (<5); GLOMERULAR FILTRATION RATE > 60.0 (>45); GLUCOSE, FASTING 106 MG/DL (74-106); LDL CHOLESTEROL 94.8 MG/DL (<100); POTASSIUM SERUM 4.1 MMOL/L (3.5-5.1); SODIUM LEVEL 140 MMOL/L (136-145); TOTAL PROTEIN 6.2 G/DL (5.7-8.2); TRIGLYCERIDES LEVEL 191 MG/DL (<150)
[2023-08-20 13:46] LABS: THYROID STIMULATING HORMONE 3.357 uIU/ML (0.55-4.78)
[2023-08-20 14:31] LABS: HEMOGLOBIN A1c 6.2 % (4.0-6.0)
== END ==
LOC: M SFHCADAM 07:51
PROVIDERS: ATTEND Physician Assistant Medical
DX: E03.9 Hypothyroidism, unspecified (principal); E11.39 Type 2 diabetes mellitus with other diabetic ophthalmic complication

== ENCOUNTER → 2023-12-12 | Outpatient (CLI) | payer MEDICARE, BC | LOC: M WHC 10:04 | PROVIDERS: ATTEND Physician Assistant Medical | DX: Z12.31 Encounter for screening mammogram for malignant neoplasm of breast (principal) ==

== ENCOUNTER → 2024-03-03 | Outpatient (REF) | payer MEDICARE, BC ==
[2024-03-03 14:11] LABS: BASO % 0.4 % (0.0-1.0); EOS # 0.1 10^3/uL (0.0-0.5); EOS % 1.1 % (0.0-3.0); HEMOGLOBIN 13.5 g/dl (12.0-15.5); LYMPH # 2.5 10^3/uL (1.5-5.0); LYMPH % 33.3 % (24.0-44.0); MEAN CORPUSCULAR HEMOGLOBIN 31.7 pg (27.0-33.0); MEAN CORPUSCULAR HGB CONC 32.1 g/dl (32.0-36.5); MEAN CORPUSCULAR VOLUME 98.6 fl (80.0-96.0); MONO # 0.6 10^3/uL (0.0-0.8); NEUTROPHILS # 4.3 10^3/uL (1.5-8.5); NEUTROPHILS % 56.9 % (36.0-66.0); PLATELET COUNT, AUTOMATED 219 10^3/uL (150-450); RED BLOOD COUNT 4.26 10^6/uL (4.00-5.40); WHITE BLOOD COUNT 7.5 10^3/uL (4.0-10.0)
[2024-03-03 14:34] LABS: THYROID STIMULATING HORMONE 3.795 uIU/ML (0.55-4.78)
[2024-03-03 14:35] LABS: TOTAL 25(OH) VITAMIN D 65.4 NG/ML (20.0-100.0)
[2024-03-03 14:37] LABS: ALBUMIN 3.6 G/DL (3.2-5.2); ALKALINE PHOSPHATASE 59 U/L (35-104); ALT/SGPT 17 U/L (7.0-40); AST/SGOT 12 U/L (<34); BILIRUBIN,TOTAL 1.2 MG/DL (0.3-1.2); BLOOD UREA NITROGEN 18 MG/DL (9-23); CALCIUM LEVEL 9.9 MG/DL (8.3-10.6); CARBON DIOXIDE LEVEL 30 MMOL/L (20-31); CHLORIDE LEVEL 106 MMOL/L (98-107); CHOLESTEROL LEVEL 202 MG/DL (<200); CHOLESTEROL RISK RATIO 3.72 (<5); CREATININE FOR GFR 0.62 MG/DL (0.55-1.30); GLOMERULAR FILTRATION RATE > 60.0 (>45); GLUCOSE, FASTING 109 MG/DL (74-106); HDL CHOLESTEROL 54.3 MG/DL (>40); LDL CHOLESTEROL 107.7 MG/DL (<100); NON-HDL-C 147.7 MG/DL; POTASSIUM SERUM 4.6 MMOL/L (3.5-5.1); SODIUM LEVEL 141 MMOL/L (136-145); TOTAL PROTEIN 6.6 G/DL (5.7-8.2); TRIGLYCERIDES LEVEL 200 MG/DL (<150)
== END ==
LOC: M SFHCADAM 08:18
PROVIDERS: ATTEND Physician Assistant Medical
DX: G47.33 Obstructive sleep apnea (adult) (pediatric) (principal); E03.9 Hypothyroidism, unspecified; E11.39 Type 2 diabetes mellitus with other diabetic ophthalmic complication; E66.9 Obesity, unspecified; Z12.31 Encounter for screening mammogram for malignant neoplasm of breast

== ENCOUNTER → 2024-09-28 | Outpatient (CLI) | payer MEDICARE, BC ==
[2024-09-28 11:04] LABS: BASO # 0.0 10^3/uL (0.0-0.2); BASO % 0.5 % (0.0-1.0); EOS # 0.1 10^3/uL (0.0-0.5); EOS % 1.4 % (0.0-3.0); LYMPH # 2.1 10^3/uL (1.5-5.0); LYMPH % 24.7 % (24.0-44.0); MONO # 0.7 10^3/uL (0.0-0.8); MONO % 7.8 % (2.0-8.0); NEUTROPHILS # 5.7 10^3/uL (1.5-8.5); NEUTROPHILS % 65.4 % (36.0-66.0); PLATELET COUNT, AUTOMATED 209 10^3/uL (150-450)
[2024-09-28 11:08] LABS: ALT/SGPT 18 U/L (7.0-40); AST/SGOT 19 U/L (<34); CALCIUM LEVEL 9.7 MG/DL (8.3-10.6); CARBON DIOXIDE LEVEL 30 MMOL/L (20-31); CHLORIDE LEVEL 104 MMOL/L (98-107); CHOLESTEROL LEVEL 188 MG/DL (<200); CHOLESTEROL RISK RATIO 3.73 (<5); CREATININE FOR GFR 0.66 MG/DL (0.55-1.30); GLOMERULAR FILTRATION RATE > 90.0 (>45); LDL CHOLESTEROL 97.6 MG/DL (<100); NON-HDL-C 137.6 MG/DL; POTASSIUM SERUM 4.3 MMOL/L (3.5-5.1); SODIUM LEVEL 143 MMOL/L (136-145); TRIGLYCERIDES LEVEL 200 MG/DL (<150)
[2024-09-28 11:10] LABS: FREE T4 1.59 NG/DL (0.89-1.76); TOTAL 25(OH) VITAMIN D 82.1 NG/ML (20.0-100.0)
[2024-09-28 11:26] LABS: CREATININE, URINE 80.0 MG/DL; MALB URINE SIEMENS 3.0 MG/L
[2024-09-28 11:31] LABS: ESTIMATED AVERAGE GLUCOSE 131.0 MG/DL (60-110)
[2024-09-28 15:15] LABS: MAU/CREAT RATIO 3.8 MCG/MG (0.0-30.0)
== END ==
LOC: M PLALAB 07:16
PROVIDERS: ATTEND Physician Assistant Medical
DX: E11.39 Type 2 diabetes mellitus with other diabetic ophthalmic complication (principal)

== ENCOUNTER → 2025-03-16 | Outpatient (REF) | payer MEDICARE, OTHER | LOC: M LAB REF 15:40 | PROVIDERS: ATTEND Physician Assistant | DX: J02.9 Acute pharyngitis, unspecified (principal) ==